=== PATIENT | female | born 1985 | race Asian ===

== ENCOUNTER 2017-08-09 00:45 | Inpatient (IN) | payer SELFPAY ==
[~2017-08-09] VITALS: Ht 167.6 cm; Wt 68.0 kg
[2017-08-09 01:15] VITALS: BP 120/74
[2017-08-09] MEDS: LACTATED RINGERS 1,000 ML IV SCH ×3 (01:28→10:26)
[2017-08-09] MEDS ORDERED: PROMETHAZINE 25 MG/ML VIAL IVP PRN (02:05)
[2017-08-09] MEDS ORDERED: METHYLERGONOVINE 0.2 MG/ML AMP IM PRN ×2 (02:05→16:00)
[2017-08-09] MEDS ORDERED: OXYTOCIN 20 UNITS in LACTATED RINGERS 1,000 ML IV SCH (02:05)
[2017-08-09] MEDS ORDERED: CARBOPROST 250 MCG/ML AMP IM PRN (02:05)
[2017-08-09] MEDS ORDERED: NALBUPHINE HYDROCHLORIDE 10 MG/ML VIAL IVP PRN (02:05)
[2017-08-09] MEDS ORDERED: OXYTOCIN 10 UNITS/ML VIAL IM SCH (02:05)
[2017-08-09 03:01] LABS: BASOPHILS # (AUTO) 0.1 K/uL (0.00-0.22); EOSINOPHILS # (AUTO) 0.2 K/uL (0-0.4); HEMATOCRIT 34.7 % (36-48); HEMOGLOBIN 11.5 g/dL (12.0-16.0); LYMPHOCYTES # (AUTO) 1.7 K/uL (2.5-16.5); LYMPHOCYTES % (AUTO) 14.5 % (20.5-51.1); MEAN CORPUSCULAR HEMOGLOBIN 32 pg (27-31); MEAN CORPUSCULAR HGB CONC 33 g/dL (33-37); MEAN CORPUSCULAR VOLUME 98 fL (80-94); MONOCYTES # (AUTO) 0.7 K/uL (0.8-1.0); MONOCYTES % (AUTO) 5.4 % (1.7-9.3); NEUTROPHILS # (AUTO) 9.4 K/uL (1.8-7.7); NEUTROPHILS % (AUTO) 77.1 % (42.2-75.2); PLATELET COUNT (AUTO) 138 K/uL (140-450); RED BLOOD CELL COUNT(AUTO) 3.55 MIL/uL (4.20-5.40); RED CELL DISTRIBUTION WIDTH 12.7 % (11.6-13.7); WHITE BLOOD COUNT (AUTO) 12.1 K/uL (4.8-10.8)
[2017-08-09 03:05] LABS: APPEARANCE,URINE CLEAR (CLEAR); BILIRUBIN,URINE NEGATIVE (NEGATIVE); BLOOD, URINE 2+ (NEGATIVE); COLOR,URINE YELLOW (YELLOW); LEUKOCYTE ESTERASE ,URINE TRACE (NEGATIVE); NITRITE, URINE NEGATIVE (NEGATIVE); UGLUCOSE NEGATIVE (NEGATIVE)
[2017-08-09 03:31] LABS: RBC,URINE 0-5 (RARE) /HPF (0-5)
[2017-08-09] MEDS ORDERED: OXYTOCIN 10 UNITS/ML VIAL ONE ×2 (05:20→14:19)
[2017-08-09] MEDS ORDERED: PREN-546 PO (06:22)
[2017-08-09] MEDS ORDERED: PROMETHAZINE 25 MG/ML VIAL ONE (06:45)
[2017-08-09] MEDS ORDERED: NALBUPHINE HYDROCHLORIDE 10 MG/ML VIAL ONE (06:45)
[2017-08-09] MEDS ORDERED: ROPIVACAINE 0.2%/NS PREMIX 250 ML EPI ONE (06:57)
--- NOTE | 2017-08-09 09:16 | NUR ---
PATIENT HAS BEEN SCREENED AND CATEGORIZED LOW RISK. PATIENT WILL BE SEEN WITHIN 7 DAYS OF ADMISSION. 08/16/[address]
[2017-08-09] MEDS ORDERED: AMPICILLIN 2,000 MG VIAL ONE (13:47)
[2017-08-09] MEDS ORDERED: TERBUTALINE 1 MG/ML VIAL SUBQ ONE (14:14)
[2017-08-09] MEDS ORDERED: AMPICILLIN 2,000 MG in NACL 0.9% 100 ML IV SCH (16:00)
[2017-08-09] MEDS ORDERED: TEMAZEPAM 15 MG CAP PO PRN (16:00)
[2017-08-09] MEDS ORDERED: MEASLES, MUMPS, AND RUBELLA 1 VIAL SQVAC PRN (16:00)
[2017-08-09] MEDS ORDERED: IBUPROFEN 800 MG TAB PO PRN (16:00)
[2017-08-09] MEDS ORDERED: HYDROcodone/APAP 5/325 MG 1 TAB TAB PO PRN (16:00)
[2017-08-09] MEDS ORDERED: oxyCODONE/APAP 5/325 MG 1 TAB TAB PO PRN (16:00)
[2017-08-09] MEDS ORDERED: BENZOCAINE/MENTHOL 20%-0.5% 60 GM CAN TP PRN (16:00)
[2017-08-09] MEDS ORDERED: OXYTOCIN 10 UNITS/ML VIAL IM PRN (16:00)
[2017-08-09] MEDS ORDERED: DOCUSATE SOD/SENNA 50/8.6 MG 1 TAB PO SCH (21:00)
[2017-08-10 06:39] LABS: HEMATOCRIT 31.7 % (36-48); HEMOGLOBIN 10.7 g/dL (12.0-16.0)
[2017-08-10] MEDS ORDERED: INFLUENZA VIRUS VACCINE QUAD 0.5 ML SYR IMVAC SCH (23:20)
== END 2017-08-11 11:30 | disposition home or self-care (01) | DRG 775 ==
LOC: MLD 00:45 → MFCC 20:20
PROVIDERS: ADMIT Obstetrics & Gynecology; ATTEND Obstetrics & Gynecology
PROC: 10D07Z6 Extraction of Products of Conception, Vacuum, Via Natural or Artificial Opening (ICD-10-PCS; principal; 2017-08-09)
PROC: 3E0P7VZ Introduction of Hormone into Female Reproductive, Via Natural or Artificial Opening (ICD-10-PCS; 2017-08-09)
PROC: 0W8NXZZ Division of Female Perineum, External Approach (ICD-10-PCS; 2017-08-09)
PROC: 00HU33Z Insertion of Infusion Device into Spinal Canal, Percutaneous Approach (ICD-10-PCS; 2017-08-09)
PROC: 3E0R3BZ Introduction of Anesthetic Agent into Spinal Canal, Percutaneous Approach (ICD-10-PCS; 2017-08-09)
PROC: 3E0234Z Introduction of Serum, Toxoid and Vaccine into Muscle, Percutaneous Approach (ICD-10-PCS; 2017-08-11)
PROC: 3E0234Z Introduction of Serum, Toxoid and Vaccine into Muscle, Percutaneous Approach (ICD-10-PCS; 2017-08-11)
DX: O69.1XX0 Labor and delivery complicated by cord around neck, with compression, not applicable or unspecified (principal); Z37.0 Single live birth; Z3A.39 39 weeks gestation of pregnancy; Z83.3 Family history of diabetes mellitus; Z82.49 Family history of ischemic heart disease and other diseases of the circulatory system; Z90.49 Acquired absence of other specified parts of digestive tract
CPT/HCPCS: 36415; 51702; 81001; 85018; 85025; 86592; 86886; 86900; 86901; 87086; 90658; 90715; C1758; J0290; J2300; J2550; J2590; J2795; J3105; J7120